=== PATIENT | male | born 1955 ===

== ENCOUNTER 2018-08-30 10:13 | Emergency (ER) | payer BC ==
[2018-08-30 10:25] VITALS: BP 145/82; PULSE 79; RESP 18; TEMP 98.1; O2SAT 97
--- NOTE | 2018-08-30 10:41 | C.PDOC ---
History Of Present Illness 63 y/o male with a PMHx of alcohol abuse presents to the ED s/p alcohol relapse, reports he has been binge drinking for the past 4 days. Last drink was this morning. Patient complains of feeling bad but denies any suicidal or homicidal ideation. Denies other drug use. Patient also states he accidentally fell several days ago, sustained bruising to left eye. Otherwise he denies any visual deficit, nausea, vomiting, or severe headache. Family at bedside notes pt is at baseline mental status. Time Seen by Provider: 08/30/18 10:24 Chief Complaint (Nursing): Substance Abuse History Per: Patient History/Exam Limitations: no limitations Onset/Duration Of Symptoms: Days Current Symptoms Are (Timing): Still Present Suicide/Self Injury Attempted (Context): None Modifying Factor(s): Alcohol Past Medical History Reviewed: Historical Data, Nursing Documentation, Vital Signs Vital Signs: Last Vital Signs Temp 98.1 F 08/30/18 10:21 Pulse 79 08/30/18 10:21 Resp 18 08/30/18 10:21 BP 145/82 08/30/18 10:21 Pulse Ox 97 08/30/18 10:21 - Medical History PMH: Arthritis Surgical History: Cholecystectomy Family History: States: No Known Family Hx - Social History Hx Alcohol Use: Yes Hx Substance Use: No - Immunization History Hx Tetanus Toxoid Vaccination: No Hx Influenza Vaccination: No Hx Pneumococcal Vaccination: No Review Of Systems Except As Marked, All Systems Reviewed And Found Negative. Constitutional: Negative for: Fever Cardiovascular: Negative for: Chest Pain Respiratory: Negative for: Shortness of Breath Gastrointestinal: Negative for: Vomiting, Abdominal Pain Psych: Positive for: Other (Alcohol abuse). Negative for: Suicidal ideation Physical Exam - Physical Exam Appears: Non-toxic, No Acute Distress Skin: Normal Color, Warm, Dry Head: Atraumatic, Normacephalic Eye(s): bilateral: Normal Inspection, PERRL, EOMI Oral Mucosa: Moist Neck: Normal ROM Chest: Symmetrical Cardiovascular: Rhythm Regular Respiratory: Normal Breath Sounds, No Accessory Muscle Use, Other (NARD) Gastrointestinal/Abdominal: Soft, No Tenderness, No Distention Extremity: Bilateral: Atraumatic, Normal Color And Temperature Pulses: Left Dorsalis Pedis: Normal, Right Dorsalis Pedis: Normal Neurological/Psych: Oriented x3 ED Course And Treatment O2 Sat by Pulse Oximetry: 97 - Physician Consult Information Time Consulting Physician Contacted: 10:40 Outcome Of Conversation: NO DETOX BEDS PER [facility] Medical Decision Making Medical Decision Making: Initial Plan: --Librium 100 mg PO --Toradol 60 mg IM --Zofran 4 mg PO --Pending available detox bed Disposition Counseled Patient/Family Regarding: Diagnosis, Need For Followup - Disposition Referrals: [facility] [Other] Disposition: HOME/ ROUTINE Disposition Time: 10:40 Condition: IMPROVED Instructions: Alcohol Abuse and Alcoholism (DC) Forms: [employer] ([place]) - Clinical Impression Clinical Impression: Alcohol abuse - Scribe Statement The provider has reviewed the documentation as recorded by the Kiera Sibley Provider Attestation: All medical record entries made by the Oswaldoibdinesh were at my direction and personally dictated by me. I have reviewed the chart and agree that the record accurately reflects my personal performance of the history, physical exam, medical decision making, and the department course for this patient. I have also personally directed, reviewed, and agree with the discharge instructions and disposition.
== END 2018-08-30 10:57 | disposition home or self-care (01) ==
LOC: C.ER 10:13
DX: F10.10 Alcohol abuse, uncomplicated (principal); Y90.9 Presence of alcohol in blood, level not specified
CPT/HCPCS: 82948; 96372; 99283; J1885